=== PATIENT | female | born 1990 | race Caucasian/White ===

== ENCOUNTER 2018-01-11 04:21 | Inpatient (IN) ==
[2018-01-11] MEDS ORDERED: CALCIUM CARBONATE Chewable 500mg TABLET PO PRN ×2 (04:45→07:34)
[2018-01-11] MEDS ORDERED: MAG-AL + SIM ORAL LIQUID 30ml PO PRN ×2 (04:45→07:34)
[2018-01-11] MEDS ORDERED: METHYLERGONOVINE 0.2 MG/ML INJECTION IM PRN (04:45)
[2018-01-11] MEDS ORDERED: LIDOCAINE 1% (10mg/ml) 2mL INJ PF SDV ID PRN (04:45)
[2018-01-11] MEDS ORDERED: CARBOPROST 250 MCG/ML INJECTION IM PRN (04:45)
[2018-01-11] MEDS ORDERED: LR 1,000 ML IV PRN (04:45)
[2018-01-11] MEDS ORDERED: ACETAMINOPHEN 500 MG TABLET PO PRN ×2 (04:45→07:34)
[2018-01-11] MEDS ORDERED: AMPICILLIN 2 GM in NS 100 ML IV SCH (05:15)
[2018-01-11 05:27] VITALS: BMI 21.7
[2018-01-11] MEDS ORDERED: DiphenhydrAMINE 25 MG CAPSULE PO PRN (07:34)
[2018-01-11] MEDS ORDERED: Oxycodone/Acetaminophen 5/325 1 TAB PO PRN (07:34)
[2018-01-11] MEDS ORDERED: IBUPROFEN 800 MG TABLET PO PRN (07:34)
[2018-01-11] MEDS ORDERED: HYDROCORTISONE 2.5% CREAM 30gm RECTALLY PRN (07:34)
[2018-01-11] MEDS ORDERED: OXYTOCIN DRIP 30 UNIT/500 ML ML IV SCH ×2 (07:45)
--- NOTE | 2018-01-11 07:51 | OB/GYN Procedure Note ---
Delivery date: 01/11/18 Intrapartal events: None Induction method: none Delivery monitor: external FHT, external uterine Route of delivery: Laceration description: Periurethral - 2nd Degree (BL) Delivery repair: chromic Anesthesia type: None Disposition: floor - Baby 1 Infant gender: Female presentation: Vertex Placenta delivery description: Spontaneous cord vessel description: 3 Vessels at 1 minute: 8 at 5 minutes: 9
[2018-01-11] MEDS ORDERED: DOCUSATE CALCIUM 240 MG CAPSULE PO SCH (09:00)
[2018-01-11] MEDS ORDERED: AMPICILLIN 1 GM in NS 100 ML IV SCH (09:10)
[2018-01-11 12:12] VITALS: RESP 16
--- NOTE | 2018-01-11 13:52 | Labor and Delivery Note ---
DATE OF DELIVERY: 01/11/2018 DELIVERY NOTE There was a spontaneous vaginal delivery over intact perineum without epidural of a viable female infant named Kim Welsh with Apgars of 8/9/9. There was no nuchal cord and no meconium noted. There was spontaneous delivery of the placenta. There were second-degree bilateral periurethrals that were repaired with 3-0 chromic. No perineal laceration or vaginal laceration was noted. Third stage of labor was actively managed with Pitocin. Estimated blood loss was 700 mL secondary to bilateral periurethrals. Mother and infant stayed on the floor in stable condition. The patient presented to [facility] about 4 o'clock in the morning and was noted to be 4 cm and in active labor and did not desire epidural anesthesia. She rapidly progressed to 7 cm by 5:30 a.m. and was noted to be complete and + 2. The patient started pushing at about 6:20 and delivery time was 6:43. [facility]
[2018-01-12] MEDS ORDERED: DiphenhydrAMINE 25 MG CAPSULE PO PRN (10:18)
[2018-01-12] MEDS ORDERED: HYDROCORTISONE 2.5% CREAM 30gm RECTALLY PRN (10:18)
[2018-01-12] MEDS ORDERED: MAG-AL + SIM ORAL LIQUID 30ml PO PRN (10:18)
[2018-01-12] MEDS ORDERED: ACETAMINOPHEN 500 MG TABLET PO PRN (10:18)
[2018-01-12] MEDS: DOCUSATE CALCIUM 240 MG CAPSULE PO SCH (12:45)
--- NOTE | 2018-01-12 13:33 | Progress Note ---
OB PP Progress Note Free Text - Date Date: 01/12/18 - Progress Note Progress Note: S: Pt doing very well. Minimal lochia & pain. Not taking any pain medications. BF well. Jessica PO/Amb/void. O: AF/VSS FF/NT, below umb, no peripheral edema A/P: PPD #1 s/p w/ 2nd deg lac repair, GBS pos. No current concerns. Plan d/c home tomorrow.
[2018-01-13] MEDS: DOCUSATE CALCIUM 240 MG CAPSULE PO SCH (09:32)
[2018-01-13 10:29] VITALS: BP 122/66; PULSE 72; TEMP 98.5; O2SAT 98
--- NOTE | 2018-01-13 13:23 | Progress Note ---
OB PP Progress Note Free Text - Date Date: 01/13/18 - Progress Note Progress Note: S: Pt doing well. BF well. Min lochia. Jessica PO/amb/void. Min lochia. Had some SOA w/ walking last noc, but had resolved by the next time she got up to walk & has not recurred. O: AF/VSS Gen: A&O, NAD Lungs: CTA bilat CV: RRR no murmur ABD: FF/below umb/NTTP EXT: No C/C/E, neg Cherrie's bilat A/P: PPD #2 s/p GBS pos, doing very well, no concerns. Continue BF. Pt will f/u w/ as needed. F/u my office in 6 wks PP.
== END 2018-01-13 14:30 | disposition home or self-care (01) | DRG 774 ==
LOC: OBOBS 04:21 → MC 04:23
PROVIDERS: ADMIT Obstetrics & Gynecology; ATTEND Family Medicine